=== PATIENT | male | born 1960 | race Hispanic/Latino ===

== ENCOUNTER → 2018-03-04 | Day surgery (SDC) | payer OTHER ==
[~2018-03-04] MED LIST: AMPICILLIN SOD/SULBACTAM 3GM 100 ML IV SCH; CEFTRIAXONE SOD 1 GM VIAL ONE; DEXAMETHASONE SOD PHOS INJ 4 MG/ML VIAL IV ONE; FENTANYL CITRATE/PF 100MCG/2 ML INJ ONE; LIDOCAINE HCL 2% LOCAL INJ 5 ML SDV VIAL INJ ONE; LOSARTAN POTASS25 MG PO; MEPERIDINE HCL INJ 50 MG/ML INJ ONE; MIDAZOLAM HCL 2 MG/2 ML VIAL ONE; ONDANSETRON HCL INJ 2 MG/ML VIAL IV ONE; PROPOFOL IV EMULSION 10 MG/ML 20 ML VIAL IV ONE; SEVOFLURANE INHAL SOLN 250 ML PEN BTL INH ONE; SUCCINYLCHOLINE 200 MG/10 ML SYR IV ONE; TAMSULOSIN HCL0.4 MG PO
--- NOTE | 2018-03-04 08:02 | Diagnostic Imaging Report ---
PROCEDURE:X-RAY ABDOMEN - KUB COMPARISON:None. INDICATIONS:PREOPERATIVE XRAY FOR KIDNEY STONE SURGERY FINDINGS: There are no dilated loops of bowel to suggest obstruction. There are no masses. A calcified stone overlies the medial aspect of the left kidney measuring 5.6 mm. There is also a smaller stone overlying the upper pole of the left kidney. There is no evidence of free air. No acute osseous abnormalities are present. CONCLUSION: Left renal lithiasis. Kip Barrett D.O. Dictated by: Kip Barrett D.O. on 03/04/2018 at 8:10 Electronically approved by: Kip Barrett D.O. on 03/04/2018 at 8:10
--- NOTE | 2018-03-04 10:23 | Diagnostic Imaging Report ---
PROCEDURE: CHEST SINGLE (PORTABLE) COMPARISON: None. INDICATIONS: POSSIBLE ASPIRATION FINDINGS: LUNGS: Focal opacity in the right midlung zone and perihilar region and left retrocardiac region could represent early changes of aspiration. PLEURA: No effusions or pneumothorax. HEART \T\ MEDIASTINUM: The heart is enlarged. BONES \T\ SOFT TISSUES: No acute findings. CONCLUSION: Focal right midlung zone, right perihilar region and left retrocardiac opacities. Kip Barrett D.O. Dictated by: Kip Barrett D.O. on 03/04/2018 at 10:31 Electronically approved by: Kip Barrett D.O. on 03/04/2018 at 10:31
--- NOTE | 2018-03-04 10:29 | Operative Report ---
DATE OF PROCEDURE: March 04, 2018 PREOPERATIVE DIAGNOSIS: Right kidney stone. POSTOPERATIVE DIAGNOSIS: Right kidney stone. PROCEDURES 1. Staged, right-sided, shock-wave lithotripsy. 2. Supervision of fluoroscopy. ANESTHESIA: General. ESTIMATED BLOOD LOSS: Minimal. COMPLICATIONS: None. INDICATIONS: Mr. Chase is a very pleasant, 57-year-old male with a symptomatic right-sided kidney stone. He and I had a long discussion regarding the alternatives, risks and benefits, including doing nothing, shock-wave lithotripsy, ureteroscopy, percutaneous surgery, open surgery. He voiced an understanding of the options, the alternatives, and the risks and benefits, and he elected to proceed. PROCEDURE IN DETAIL: After informed consent was obtained, the patient was taken to the operative suite and placed supine on the operating table. The patient underwent general anesthesia. LMA was placed prior to the procedure beginning and just shortly after the time out. The patient desaturated, and he was intubated. Saturations recovered to 100%. At this time, with clear airway and stable patient, we proceeded with shock-wave lithotripsy. The stone was localized in the X, Y and Z planes. Total of 3000 shocks at a maximum setting of 6 was delivered to the stone. The patient tolerated the procedure well and was transported to the recovery room in excellent condition where pulmonary consultation was obtained and recommendations followed. SUPERVISION OF FLUOROSCOPY: I was present for the entire procedure and supervised the fluoroscopy. No radiologist was present. Details are per treatment report. Job#: [id number] [place] MERINO
[2018-03-04 11:00] LABS: BASOPHILS % 0.4 % (0.0-1.0); EOSINOPHILS % 0.3 % (0.0-6.0); HEMATOCRIT 46.8 % (38.2-49.6); HEMOGLOBIN 15.3 g/dL (14.0-18.0); LYMPHOCYTES # (AUTO) 0.9 (1.0-3.2); LYMPHOCYTES % 10.1 % (18.0-39.1); MEAN CORPUSCULAR HGB CONC 32.7 g/dL (31-35); MEAN CORPUSCULAR VOLUME 88.6 fL (81-99); MONOCYTES # (AUTO) 0.1 (0.2-0.8); MONOCYTES % 1.6 % (4.4-11.3); NEUTROPHILS # (AUTO) 7.8 (2.1-6.9); NEUTROPHILS % 87.4 % (38.7-80.0); PLATELET COUNT 187 x10e3/uL (140-360); RED BLOOD COUNT 5.28 x10e6/uL (4.3-5.7)
[2018-03-04 11:20] LABS: ALANINE AMINOTRANSFERASE 18 IU/L (0-55); ALBUMIN 3.5 g/dL (3.5-5.0); ALKALINE PHOSPHATASE 79 IU/L (40-150); ANION GAP 13.6 mmol/L (8-16); BLOOD UREA NITROGEN 14 mg/dL (7-26); BUN/CREATININE RATIO 12 (6-25); CALCIUM 9.1 mg/dL (8.4-10.2); CARBON DIOXIDE 25 mmol/L (22-29); CHLORIDE 106 mmol/L (98-107); CREATININE, SERUM 1.13 mg/dL (0.72-1.25); EST GLOMERULAR FILTRATION RATE > 60 ML/MIN (60-); GLUCOSE 113 mg/dL (74-118); POTASSIUM 4.6 mmol/L (3.5-5.1); SODIUM 140 mmol/L (136-145)
[2018-03-04 11:50] VITALS: BP 123/91
--- NOTE | 2018-03-04 12:26 | Consultation ---
DATE OF CONSULTATION: March 04, 2018 PULMONARY CONSULTATION REASON FOR CONSULTATION: Patient possibly aspirated and shortness of breath during lithotripsy procedure. HPI: Mr. Chase is a 57-year-old male with a history of hypertension and kidney stone. He was here today for lithotripsy. Patient underwent lithotripsy. The procedure was done with LMA. Patient desaturated, and he was intubated. Post procedure, he was extubated. He has been doing well ever since. His chest x-ray was done, which showed possibility of right middle lobe or lower lobe aspiration. He is asymptomatic. He is saturating 94% on room air. He denies any chest pain, shortness of breath, nausea or vomiting. REVIEW OF SYSTEMS GENERAL: Denies any fever or chills. HEAD: Denies any head trauma. ENT: Denies any earache. CVS: Denies any chest pain. RESPIRATORY: Denies any shortness of breath. OTHER: The rest of the review of systems are negative except as in HPI. PAST MEDICAL HISTORY: Hypertension. PAST SURGICAL HISTORY: None. FAMILY AND SOCIAL HISTORY: He does not smoke. He does not drink. He lives with his . PHYSICAL EXAMINATION VITAL SIGNS: Temperature 97.8. Pulse of 80. O2 sat is 93% on room air. Respiratory rate 18. Blood pressure 133/91. SKIN: Warm and dry. No rash. HEENT: Head is atraumatic and normocephalic. NECK: Supple. CHEST: Clear to auscultation bilaterally. No crackles. No wheezing. HEART: S1 and S2 audible. ABDOMEN: Soft, nontender and nondistended. EXTREMITIES: No clubbing, cyanosis or edema. NEUROLOGIC: Awake and alert. LABS: No new labs. CHEST X-RAY: I reviewed the films. It is showing possibly right middle lobe opacity but otherwise clear. ASSESSMENT AND PLAN: Mr. Chase is a 57-year-old male who underwent lithotripsy. Interprocedure, the patient possibly aspirated and required intubation with desaturation. However, he is saturating 98% on room air, and he is breathing 14 times a minute. He told me that he is not in any respiratory distress. PLAN: I will do a CBC and CMP and re-evaluate. Patient may need a short course of p.o. antibiotic. Further recommendation after reviewing the labs. If the labs are normal, I can discharge him on p.o. antibiotic at home. He will follow up with his primary care physician. Thank you for this consult. Job#: [id number]
--- OUTSIDE RECORDS SUMMARY | 2018-03-22 07:59 | XMS REPORT ---
Author Author [facility] Address Unknown Phone Unavailable Care Team Providers Care Unarmed Security Officer Name Role Phone JACK TORREZ Unavailable Unavailable ZANE CLIFTON Unavailable Unavailable Problems This patient has no known problems. Allergies, Adverse Reactions, Alerts This patient has no known allergies or adverse reactions. Medications This patient has no known medications. Results Test Description Test Time Test Comments Text Results Atomic Results Result Comments CHEST SINGLE (PORTABLE) 2018-03-04 10:31:00 [place] [address] Patient Name: DAVID RAMIREZ MR #: [id number] : 1960 Age/Sex: 57/M Req #: [id number] Adm Physician: JACK TORREZ MD Ordered by: GUNNAR ALEXANDRA MD Report #: [id number] Location: PACU V Room/Bed: PACU-1 Procedure: [id number] DX/CHEST SINGLE (PORTABLE) Exam Date: 03/04/18 Exam Time: 1000 REPORT STATUS: Signed PROCEDURE: CHEST SINGLE (PORTABLE) COMPARISON: None. INDICATIONS: POSSIBLE ASPIRATION FINDINGS: LUNGS: Focal opacity in the right midlung zone and perihilar region and left retrocardiac region could represent early changes of aspiration. PLEURA: No effusions or pneumothorax. HEART T MEDIASTINUM: The heart is enlarged. BONES T SOFT TISSUES: No acute findings. CONCLUSION: Focal right midlung zone, right perihilar region and left retrocardiac opacities. Garrett Barrett D.O. Dictated by: Garrett Barrett D.O. on 03/04/2018 at 10:31 Electronically approved by: Garrett Barrett D.O. on 03/04/2018 at 10:31 Dictated By: GARRETT BARRETT DO 1031 Transcribed By: CALLY on 03/04/18 1031 COPY TO: GUNNAR ALEXANDRA MD ABDOMEN-1VIEW (KUB) 2018-03-04 08:10:00 [place] [address] Patient Name: DAVID RAMIREZ MR #: [id number] : 1960 Age/Sex: 57/M Req #: [id number] Adm Physician: Ordered by: JACK TORREZ MD Report #: [id number] Location: OR Room/Bed: Procedure: [id number] DX/ABDOMEN-1VIEW (KUB) Exam Date: 03/04/18 Exam Time: 0740 REPORT STATUS: Signed PROCEDURE: X-RAY ABDOMEN - KUB COMPARISON: None. INDICATIONS: PREOPERATIVE XRAY FOR KIDNEY STONE SURGERY FINDINGS: There are no dilated loops of bowel to suggest obstruction. There are no masses. A calcified stone overlies the medial aspect of the left kidney measuring 5.6 mm. There is also a smaller stone overlying the upper pole of the left kidney. There is no evidence of free air. No acute osseous abnormalities are present. CONCLUSION: Left renal lithiasis. Garrett Barrett D.O. Dictated by: Garrett Barrett D.O. on 03/04/2018 at 8:10 Electronically approved by: Garrett Barrett D.O. on 03/04/2018 at 8:10 Dictated By: GARRETT BARRETT DO 9 Transcribed By: CALLY on 03/04/18809 COPY TO: JACK TORREZ MD POCT-CREATININE 2016-10-02 09:19:00 POC-CREATININE ([facility]) (test wbzn=0343) 0.9 mg/dL 0.6-1.3 [address]ED [address] [address] POC-EGFR ([facility]) (test pxvq=1482) mL/min/1.73M2 Insufficient clinical data to calculate estimated GFR
--- OUTSIDE RECORDS SUMMARY | 2018-03-22 07:59 | XMS REPORT | Clinical Summary ---
Author Author [facility] Address Unknown Phone Unavailable Care Team Providers Care Skid Road Worker Name Role Phone PCP Unavailable Allergies No Known Allergies Current Medications Not on file Active Problems Not on file Social History Tobacco Use Types Packs/Day Years Used Date Never Assessed Sex Assigned at Date Recorded Not on file Last Filed Vital Signs Not on file Plan of Treatment Not on file Results Not on fileafter 03/03/2017
--- OUTSIDE RECORDS SUMMARY | 2018-03-22 08:03 | XMS REPORT | Clinical Summary ---
Author Author [facility] Address Unknown Phone Unavailable Care Team Providers Care Horticultural Agent Name Role Phone PCP Unavailable Allergies No Known Allergies Current Medications Not on file Active Problems Not on file Social History Tobacco Use Types Packs/Day Years Used Date Never Assessed Sex Assigned at Date Recorded Not on file Last Filed Vital Signs Not on file Plan of Treatment Not on file Results Not on fileafter 03/03/2017
== END | disposition home or self-care (01) ==
LOC: OR 06:27 → PACU V 09:55 → UNDOADMOB 09:55
PROVIDERS: ATTEND Urology
DX: N20.0 Calculus of kidney (principal); N40.1 Benign prostatic hyperplasia with lower urinary tract symptoms; N13.8 Other obstructive and reflux uropathy; I10 Essential (primary) hypertension; R39.15 Urgency of urination; R35.1 Nocturia; R39.14 Feeling of incomplete bladder emptying; N28.1 Cyst of kidney, acquired; R06.02 Shortness of breath; Z01.810 Encounter for preprocedural cardiovascular examination
CPT/HCPCS: 31500; 36415; 50590; 71045; 74018; 80053; 85025; 93005; J0295; J0696; J1100; J2001; J2175; J2405

== ENCOUNTER → 2018-04-14 | Outpatient (CLI) | payer OTHER ==
[~2018-04-14] MED LIST changes: -AMPICILLIN SOD/SULBACTAM 3GM 100 ML IV SCH; -CEFTRIAXONE SOD 1 GM VIAL ONE; -DEXAMETHASONE SOD PHOS INJ 4 MG/ML VIAL IV ONE; -FENTANYL CITRATE/PF 100MCG/2 ML INJ ONE; -LIDOCAINE HCL 2% LOCAL INJ 5 ML SDV VIAL INJ ONE; -MEPERIDINE HCL INJ 50 MG/ML INJ ONE; -MIDAZOLAM HCL 2 MG/2 ML VIAL ONE; -ONDANSETRON HCL INJ 2 MG/ML VIAL IV ONE; -PROPOFOL IV EMULSION 10 MG/ML 20 ML VIAL IV ONE; -SEVOFLURANE INHAL SOLN 250 ML PEN BTL INH ONE; -SUCCINYLCHOLINE 200 MG/10 ML SYR IV ONE
--- NOTE | 2018-04-14 09:01 | Diagnostic Imaging Report ---
PROCEDURE: Frontal and lateral views of the chest. COMPARISON: Chest radiograph 03/04/18. INDICATIONS: FOLLOW UP ABNORMAL CHEST XRAY FINDINGS: Lines/tubes: None. Lungs: Low lung volumes. Mild patchy right basilar opacity, likely atelectasis. Previously noted right mid lung zone and left retrocardiac opacities have resolved. No evidence of lobar pneumonia or pulmonary edema. Pleura: There is no pleural effusion or pneumothorax. Heart and mediastinum: Mild enlargement of the cardiomediastinal silhouette. Bones: No acute bony abnormality. IMPRESSION: Resolution of right mid lung zone and left retrocardiac opacities. New patchy right basilar opacities, likely atelectasis. Dictated by: SIENA MOON M.D. on 04/14/2018 at 9:10 Electronically approved by: SIENA MOON M.D. on 04/14/2018 at 9:10
== END ==
LOC: RAD 08:12
PROVIDERS: ATTEND Internal Medicine
DX: R91.8 Other nonspecific abnormal finding of lung field (principal)
CPT/HCPCS: 71046

== ENCOUNTER → 2018-07-19 | Outpatient (CLI) | payer OTHER ==
--- NOTE | 2018-07-19 16:38 | Diagnostic Imaging Report ---
Exam: Abdominal film Clinical History: Renal calculi Comparison: 03/04/2018 DISCUSSION: As before, there are calcifications projecting over the lower and upper pole of the left renal shadow measuring 6 mm and 4 mm, respectively. No definite calcifications project over the right renal shadow or expected ureteral courses. Bowel gas pattern is nonobstructive. Regional skeletal structures are intact. Probable bone island in the left iliac vein. IMPRESSION: Unchanged left renal calculi compared to 03/04/2018. Signed by: Dr. Spencer Latham M.D. on 07/19/2018 4:35 PM
== END ==
LOC: RAD 15:54
PROVIDERS: ATTEND Urology
DX: N20.0 Calculus of kidney (principal)
CPT/HCPCS: 74018

== ENCOUNTER → 2019-03-17 | Outpatient (CLI) | payer OTHER ==
--- NOTE | 2019-03-17 12:40 | Diagnostic Imaging Report ---
Exam: KUB - 2 views Indication: Renal calculi Comparison: Multiple prior KUBs, most recently of 07/19/2018 Findings: Again seen is a left mid pole 7 mm calculus and left upper pole 4 mm calculus. 4 mm calcific density overlying the expected region of the right renal pelvis appears slightly indistinct and more likely represents bowel content than renal calculus. Not certain bowel gas pattern. No free air. Impression: Left mid pole and left upper pole renal calculi as before. Calcific density overlying the right renal pelvis more likely represents bowel content than renal calculus. Signed by: Amena Bull MD on 03/17/2019 12:36 PM
== END ==
LOC: RAD 11:29
PROVIDERS: ATTEND Internal Medicine
DX: N20.0 Calculus of kidney (principal)
CPT/HCPCS: 74018

== ENCOUNTER → 2020-03-11 | Outpatient (CLI) | payer OTHER | LOC: CT 07:46 | PROVIDERS: ATTEND Urology | DX: N20.0 Calculus of kidney (principal) | CPT/HCPCS: 74176 ==

== ENCOUNTER → 2022-08-06 | Outpatient (CLI) | payer OTHER | LOC: RAD 09:58 | PROVIDERS: ATTEND Obstetrics & Gynecology Gynecology | DX: N20.0 Calculus of kidney (principal) | CPT/HCPCS: 74018 ==

== ENCOUNTER 2025-02-01 20:53 | Inpatient (IN) | payer OTHER ==
[~2025-02-01] VITALS: Ht 188 cm; Wt 99.8 kg
[2025-02-01 22:30] LABS: LEUKOCYTE ESTERASE ,URINE NEGATIVE (NEGATIVE); PROTEIN,URINE DIPSTICK TRACE (NEGATIVE); URINE UROBILINOGEN 0.2 mg/dL (0.2 - 1)
[2025-02-01 22:33] LABS: EPITHELIAL CELLS,URINE FEW /LPF
[2025-02-01] MEDS: ONDANSETRON HCL INJ 2MG/ML 2ML 2 MG/ML VIAL IV STA (22:59)
[2025-02-01 23:01] LABS: BASOPHILS % 0.6 % (0.0-1.0); EOSINOPHILS % 0.6 % (0.0-6.0); LYMPHOCYTES % 11.3 % (18.0-39.1); MONOCYTES % 7.6 % (4.4-11.3); NEUTROPHILS % 79.7 % (38.7-80.0); RED CELL DISTRIBUTION WIDTH 13.7 % (11.7-14.4)
[2025-02-01] MEDS: Morphine 4mg INJECTION 4 MG/ML INJ IV ONE (23:02)
[2025-02-01 23:13] LABS: EST GLOMERULAR FILTRATION RATE 56.0 ML/MIN (>=60)
[2025-02-02] VITALS (11 sets, daily range): BP systolic 96–140; BP diastolic 52–102; PULSE 54–81; RESP 15–18; TEMP 97.7–98.6; O2SAT 95–100
[2025-02-02] MEDS: SODIUM CHLORIDE 0.9% 1000ML 1,000 ML IV SCH (03:13)
[2025-02-02] MEDS ORDERED: PLAVIX75 MG PO (07:37)
[2025-02-02] MEDS ORDERED: ROSUVASTATIN CA10 MG PO (07:37)
[2025-02-02] MEDS ORDERED: AMLODIPINE BESYL5 MG PO (07:37)
[2025-02-02] MEDS ORDERED: METOPROLOL SUCC50 MG PO (07:37)
[2025-02-02] MEDS: TAMSULOSIN HCL 0.4 MG CAP PO SCH (14:57)
[2025-02-02] MEDS: LOSARTAN POTASSIUM 25 MG TAB PO SCH (14:58)
[2025-02-02] MEDS: AMLODIPINE BESYLATE 5 MG TAB PO SCH (14:58)
[2025-02-03] VITALS (7 sets, daily range): BP systolic 97–135; BP diastolic 58–84; PULSE 55–72; RESP 17–18; TEMP 97.4–98.7; O2SAT 96–100
[2025-02-03 07:00] LABS: BASOPHILS % 1.0 % (0.0-1.0); EOSINOPHILS % 2.2 % (0.0-6.0); LYMPHOCYTES % 26.7 % (18.0-39.1); MONOCYTES % 10.3 % (4.4-11.3); NEUTROPHILS % 59.4 % (38.7-80.0); RED CELL DISTRIBUTION WIDTH 13.6 % (11.7-14.4)
[2025-02-03 07:45] LABS: EST GLOMERULAR FILTRATION RATE 64.0 ML/MIN (>=60)
[2025-02-03] MEDS ORDERED: LOSARTAN POTASSIUM 25 MG TAB PO SCH (09:00)
[2025-02-03] MEDS ORDERED: AMLODIPINE BESYLATE 5 MG TAB PO SCH (09:00)
[2025-02-03] MEDS ORDERED: TAMSULOSIN HCL 0.4 MG CAP PO SCH (09:00)
[2025-02-03] MEDS: CRESTOR 10MG PO SCH (09:33)
[2025-02-04] VITALS (9 sets, daily range): BP systolic 116–141; BP diastolic 76–95; PULSE 19–76; RESP 17–20; TEMP 97–98.6; O2SAT 95–100
[2025-02-04 06:01] LABS: BASOPHILS % 0.8 % (0.0-1.0); EOSINOPHILS % 1.9 % (0.0-6.0); LYMPHOCYTES % 26.6 % (18.0-39.1); MONOCYTES % 10.3 % (4.4-11.3); NEUTROPHILS % 60.1 % (38.7-80.0); RED CELL DISTRIBUTION WIDTH 13.4 % (11.7-14.4)
[2025-02-04 06:21] LABS: EST GLOMERULAR FILTRATION RATE 64.0 ML/MIN (>=60)
[2025-02-04] MEDS ORDERED: FENTANYL CITRATE/PF 100MCG/2 ML INJ ONE ×2 (06:56→07:58)
[2025-02-04] MEDS ORDERED: LIDOCAINE HCL 2% LOCAL INJ 5 ML SDV VIAL INJ ONE (06:56)
[2025-02-04] MEDS ORDERED: PROPOFOL IV EMULSION 10 MG/ML 20 ML VIAL ONE (06:57)
[2025-02-04] MEDS ORDERED: KETOROLAC TROMETHAMINE 30 MG/ML VIAL ONE (07:35)
[2025-02-04] MEDS ORDERED: ONDANSETRON HCL INJ 2MG/ML 2ML 2 MG/ML VIAL ONE (07:35)
[2025-02-04] MEDS ORDERED: DEXAMETHASONE SOD PHOS INJ 4 MG/ML SDV ONE (07:35)
[2025-02-04] MEDS ORDERED: METOCLOPRAMIDE HCL 10 MG/2ML VIAL ONE (07:35)
[2025-02-04] MEDS ORDERED: CLOPIDOGREL BISULFATE 75 MG TAB PO SCH (09:00)
[2025-02-04] MEDS: ACETAMINOPHEN/CODEINE 300MG - 30MG TAB PO PRN (09:12)
[2025-02-04] MEDS: SOLIFENACIN SUCCINATE 5 MG TAB PO SCH (09:13)
[2025-02-04] MEDS: Morphine 4mg INJECTION 4 MG/ML INJ IV PRN (09:22)
[2025-02-04] MEDS: ONDANSETRON HCL INJ 2MG/ML 2ML 2 MG/ML VIAL IV PRN (15:17)
[2025-02-05 03:09] VITALS: BP 118/82; PULSE 68; RESP 18; TEMP 98; O2SAT 96
[2025-02-05 06:57] LABS: BASOPHILS % 0.3 % (0.0-1.0); EOSINOPHILS % 0.5 % (0.0-6.0); LYMPHOCYTES % 17.2 % (18.0-39.1); MONOCYTES % 8.6 % (4.4-11.3); NEUTROPHILS % 73.0 % (38.7-80.0); RED CELL DISTRIBUTION WIDTH 13.3 % (11.7-14.4)
[2025-02-05 07:07] LABS: EST GLOMERULAR FILTRATION RATE 62.0 ML/MIN (>=60)
[2025-02-05 07:47] VITALS: BP 133/91; PULSE 62; RESP 16; TEMP 98.3; O2SAT 96
[2025-02-05 09:00] VITALS: BP 133/91; PULSE 62; RESP 16; TEMP 98.3; O2SAT 96
[2025-02-05 11:57] VITALS: BP 144/99; PULSE 63; RESP 19; TEMP 98.4; O2SAT 98
[2025-02-05 16:00] VITALS: BP 144/90; PULSE 68; RESP 18; TEMP 97.6; O2SAT 98
== END 2025-02-05 17:25 | disposition home or self-care (01) | DRG 660 ==
LOC: ER 22:32 → ERHOLD 02-02 01:10 → MED/SURG2 02-02 02:25 → PACU V 02-05 11:14 → MED/SURG2 02-05 11:14
PROVIDERS: ADMIT Internal Medicine; ATTEND Internal Medicine
PROC: 0T7D8ZZ Dilation of Urethra, Via Natural or Artificial Opening Endoscopic (ICD-10-PCS; 2025-02-04)
PROC: BT141ZZ Fluoroscopy of Kidneys, Ureters and Bladder using Low Osmolar Contrast (ICD-10-PCS; 2025-02-04)
PROC: 0TC08ZZ Extirpation of Matter from Right Kidney, Via Natural or Artificial Opening Endoscopic (ICD-10-PCS; principal; 2025-02-04 07:16)
PROC: 0T768DZ Dilation of Right Ureter with Intraluminal Device, Via Natural or Artificial Opening Endoscopic (ICD-10-PCS; 2025-02-04 07:16)
DX: N13.2 Hydronephrosis with renal and ureteral calculous obstruction (principal); D68.32 Hemorrhagic disorder due to extrinsic circulating anticoagulants; N35.912 Unspecified bulbous urethral stricture, male; R82.81 Pyuria; N17.9 Acute kidney failure, unspecified; R31.29 Other microscopic hematuria; T45.525A Adverse effect of antithrombotic drugs, initial encounter; Y92.009 Unspecified place in unspecified non-institutional (private) residence as the place of occurrence of the external cause; K76.89 Other specified diseases of liver; N40.1 Benign prostatic hyperplasia with lower urinary tract symptoms; I10 Essential (primary) hypertension; E78.5 Hyperlipidemia, unspecified; I25.10 Atherosclerotic heart disease of native coronary artery without angina pectoris; Z11.52 Encounter for screening for COVID-19; Z79.899 Other long term (current) drug therapy; Z79.02 Long term (current) use of antithrombotics/antiplatelets
CPT/HCPCS: 36415; 74018; 74176; 74420; 80048; 80053; 81001; 83970; 84550; 85025; 87086; 88300; 99284; C1758; C1766; C1769; C2617; J0696; J1100; J1885; J2003; J2270; J2405; J2765; J7030